=== PATIENT | male | born 1980 | race Caucasian/White ===

== ENCOUNTER 2018-05-13 11:34 | Day surgery (SDC) | payer BC ==
[~2018-05-13] VITALS: Ht 188 cm; Wt 119.8 kg
[2018-05-13] MEDS ORDERED: ATEN25 PO (11:53)
== END 2018-05-13 13:05 | disposition home or self-care (01) ==
LOC: ORSCSDS 11:34
PROVIDERS: Anesthesiology
PROC: 3E0R33Z Introduction of Anti-inflammatory into Spinal Canal, Percutaneous Approach (ICD-10-PCS; principal; 2018-05-13 12:30)
DX: M51.16 Intervertebral disc disorders with radiculopathy, lumbar region (principal); I10 Essential (primary) hypertension; Z79.899 Other long term (current) drug therapy
CPT/HCPCS: J1040

== ENCOUNTER 2018-06-24 07:28 | Day surgery (SDC) | payer BC ==
[~2018-06-24] VITALS: Ht 188 cm; Wt 121.5 kg
[~2018-06-24 07:28] MED LIST: ATEN25 PO
== END 2018-06-24 08:45 | disposition home or self-care (01) ==
LOC: ORSCSDS 07:28
PROVIDERS: Anesthesiology
PROC: 3E0R33Z Introduction of Anti-inflammatory into Spinal Canal, Percutaneous Approach (ICD-10-PCS; principal; 2018-06-24 08:30)
DX: M51.16 Intervertebral disc disorders with radiculopathy, lumbar region (principal); I10 Essential (primary) hypertension; F17.220 Nicotine dependence, chewing tobacco, uncomplicated; Z79.899 Other long term (current) drug therapy
CPT/HCPCS: J1040

== ENCOUNTER 2024-03-02 08:20 | Day surgery (SDC) | payer BC ==
[~2024-03-02] VITALS: Ht 188 cm; Wt 119.0 kg
[~2024-03-02 08:20] MED LIST changes: +Lactated Ringer's 1,000 ML IV ONE; +propofoL 50 ML IV ONE
[2024-03-02] MEDS ORDERED: METFORMIN ER1000 M2 (09:11)
[2024-03-02] MEDS ORDERED: ALLO100 (09:12)
[2024-03-02] MEDS ORDERED: PIOGLITAZONE 30 MG (09:12)
[2024-03-02] MEDS ORDERED: Lactated Ringer's 1,000 ML IV ONE (09:20)
[2024-03-02 10:18] VITALS: BP 135/94
== END 2024-03-02 10:24 | disposition home or self-care (01) ==
LOC: ORSCSDS 08:20
PROVIDERS: Surgery
PROC: 0DBL8ZX Excision of Transverse Colon, Via Natural or Artificial Opening Endoscopic, Diagnostic (ICD-10-PCS; principal; 2024-03-02 09:30)
PROC: 0DBP8ZX Excision of Rectum, Via Natural or Artificial Opening Endoscopic, Diagnostic (ICD-10-PCS; principal; 2024-03-02 09:30)
PROC: 0DBM8ZX Excision of Descending Colon, Via Natural or Artificial Opening Endoscopic, Diagnostic (ICD-10-PCS; principal; 2024-03-02 09:30)
DX: Z12.11 Encounter for screening for malignant neoplasm of colon (principal); D12.4 Benign neoplasm of descending colon; K62.1 Rectal polyp; K63.5 Polyp of colon; E11.9 Type 2 diabetes mellitus without complications; I10 Essential (primary) hypertension; Z79.84 Long term (current) use of oral hypoglycemic drugs; Z79.899 Other long term (current) drug therapy
CPT/HCPCS: 82947; 88305; J2704; J7120